=== PATIENT | female | born 1935 | race African-American/Black ===

== ENCOUNTER → 2018-04-14 | Outpatient (CLI) | payer MEDICARE, BC | END | disposition home or self-care (01) | LOC: PVL 10:06 | PROVIDERS: ATTEND Internal Medicine | DX: I73.9 Peripheral vascular disease, unspecified (principal) | CPT/HCPCS: 93923 ==

== ENCOUNTER 2018-04-19 17:40 | Inpatient (IN) | payer MEDICARE, BC ==
[~2018-04-19] VITALS: Ht 157.5 cm; Wt 69.9 kg
[2018-04-19] MEDS ORDERED: PANT40TA4 PO (18:12)
[2018-04-19] MEDS ORDERED: FOLI-43 PO (18:12)
[2018-04-19] MEDS ORDERED: POTA20TA82 PO (18:12)
[2018-04-19] MEDS ORDERED: CELE-84 PO (18:12)
[2018-04-19] MEDS ORDERED: FURO40TA5 PO (18:12)
[2018-04-19] MEDS ORDERED: SIMV20TA6 PO (18:12)
[2018-04-19] MEDS ORDERED: GABA-529 PO (18:12)
[2018-04-19] MEDS ORDERED: ACET650S27 RC (18:12)
[2018-04-19] MEDS ORDERED: CLOP75TA33 PO (18:12)
[2018-04-19] MEDS ORDERED: METF10004 PO (18:12)
[2018-04-20 00:13] LABS: HEMATOCRIT 32.1 % (36.0-48.0); HEMOGLOBIN 10.4 g/dL (12.0-16.0); MEAN CORPUSCULAR HEMOGLOBIN 28.5 pg (28.0-32.0); MEAN CORPUSCULAR VOLUME 88.3 fL (81.0-99.0); PLATELET 517 x1000/uL (130-400); RED BLOOD CELL COUNT 3.64 mill/uL (4.2-5.4)
[2018-04-20 00:17] LABS: CHLORIDE 106 mEq/L (98-107)
[2018-04-20 03:00] VITALS: BP 165/79
[2018-04-20 04:00] VITALS: BP 161/75
[2018-04-20] MEDS ORDERED: DEXTROSE 50% WATER 50ML SYRINGE IV PRN (05:00)
[2018-04-20] MEDS ORDERED: LEVOFLOXACIN 500MG PREMIX 100 ML IV SCH ×2 (06:00)
[2018-04-20] MEDS ORDERED: PANTOPRAZOLE 40MG DR TABLET PO SCH (07:20)
[2018-04-20] MEDS: FUROSEMIDE 40MG/4ML VIAL IVP SCH ×2 (07:27→17:34)
[2018-04-20] MEDS: BLOOD SUGAR DIAGNOSTIC STRIP TEST SCH ×4 (07:27→21:14)
[2018-04-20] MEDS: INSULIN LISPRO 100 UNITS/ML SUBCUT SCH ×4 (07:36→21:33)
[2018-04-20] MEDS ORDERED: METFORMIN HCL 500MG TABLET PO SCH (07:50)
[2018-04-20 08:00] VITALS: BP 159/103
[2018-04-20] MEDS: FOLIC ACID 1MG TABLET PO SCH (08:11)
[2018-04-20] MEDS: CLOPIDOGREL 75MG TABLET PO SCH (08:11)
[2018-04-20] MEDS: POTASSIUM CHLORIDE 20MEQ TABLET SR PO SCH (08:11)
[2018-04-20] MEDS ORDERED: MEDICATION NOT ON FORMULARY EA (Pantoprazole Sodium 40 MG) PO SCH (09:00)
[2018-04-20] MEDS ORDERED: MEDICATION NOT ON FORMULARY EA (Clopidogrel Bisulfate (Clopidogrel) 75 MG) PO SCH (09:00)
[2018-04-20] MEDS ORDERED: MEDICATION NOT ON FORMULARY EA (Folic Acid 1 MG) PO SCH (09:00)
[2018-04-20] MEDS ORDERED: MEDICATION NOT ON FORMULARY EA (Simvastatin 20 MG) PO SCH (09:00)
[2018-04-20] MEDS ORDERED: POTASSIUM CHLORIDE 20MEQ TABLET SR PO SCH (09:00)
[2018-04-20 12:00] VITALS: BP 140/75
[2018-04-20 13:15] LABS: HEMATOCRIT. 32.7 % (36.0-48.0); HEMOGLOBIN. 10.6 g/dL (12.0-16.0); MEAN CORPUSCULAR HEMOGLOBIN 28.9 pg (28.0-32.0); MEAN CORPUSCULAR VOLUME 89.2 fL (81.0-99.0); PLATELET 525 x1000/uL (130-400); RED BLOOD CELL COUNT 3.66 mill/uL (4.2-5.4)
[2018-04-20 13:42] LABS: CHLORIDE 105 mEq/L (98-107)
[2018-04-20 16:00] VITALS: BP 154/53
[2018-04-20] MEDS ORDERED: DIPHENHYDRAMINE 50MG/ML VIAL IV PRN (16:00)
[2018-04-20] MEDS ORDERED: MORPHINE SULFATE 4 MG/ML CPJ (NOT FOR IM USE) IV PRN (16:00)
[2018-04-20] MEDS ORDERED: ONDANSETRON HCL 4MG/2ML INJ IV PRN (16:00)
[2018-04-20 17:25] LABS: PLATELET ESTIMATE INCREASED
[2018-04-20] MEDS ORDERED: IOHEXOL-350 100 ML BOTTLE ONE (17:42)
[2018-04-20 20:00] VITALS: BP 161/85
[2018-04-20] MEDS: ATORVASTATIN CALCIUM 10MG TABLET PO SCH (21:14)
[2018-04-21] VITALS (16 sets, daily range): BP systolic 123–157; BP diastolic 73–93
[2018-04-21] MEDS ORDERED: DEXT 5%/0.45% NACL 1000ML 1,000 ML IV SCH
[2018-04-21] MEDS: BLOOD SUGAR DIAGNOSTIC STRIP TEST SCH ×4 (06:08→21:28)
[2018-04-21] MEDS: LEVOFLOXACIN 250MG PREMIX 50 ML IV SCH (06:08)
[2018-04-21] MEDS: FUROSEMIDE 40MG/4ML VIAL IVP SCH ×2 (06:08→18:49)
[2018-04-21 07:12] LABS: PROTHROMBIN TIME 10.3 sec (9.1-11.1)
[2018-04-21 07:22] LABS: HEMATOCRIT. 34.5 % (36.0-48.0); MEAN CORPUSCULAR HEMOGLOBIN 27.9 pg (28.0-32.0); MEAN CORPUSCULAR VOLUME 87.7 fL (81.0-99.0); PLATELET 545 x1000/uL (130-400); RED BLOOD CELL COUNT 3.93 mill/uL (4.2-5.4); RED CELL DISTRIBUTION WIDTH 17.8 % (11.6-14.6)
[2018-04-21 07:45] LABS: CHLORIDE 104 mEq/L (98-107)
[2018-04-21] MEDS: INSULIN LISPRO 100 UNITS/ML SUBCUT SCH ×4 (07:50→21:39)
[2018-04-21] MEDS ORDERED: FENTANYL CITRATE/PF 50MCG/ML 2ML VIAL ONE (08:13)
[2018-04-21] MEDS ORDERED: MIDAZOLAM HCL 2 MG/2 ML VIAL ONE (08:13)
[2018-04-21] MEDS ORDERED: IODIXANOL 320MG/ML 100 ML BOTTLE IV ONE (08:14)
[2018-04-21] MEDS ORDERED: LIDOCAINE HCL 1% 20ML VIAL (Pyxis) INJ ONE (08:16)
[2018-04-21] MEDS ORDERED: IOHEXOL-300 100 ML BOTTLE ONE (08:43)
[2018-04-21] MEDS: PANTOPRAZOLE SODIUM 40 MG/VIAL IV SCH (09:00)
[2018-04-21] MEDS: POTASSIUM CHLORIDE 20MEQ TABLET SR PO SCH (09:00)
[2018-04-21] MEDS: CLOPIDOGREL 75MG TABLET PO SCH (09:00)
[2018-04-21] MEDS: FOLIC ACID 1MG TABLET PO SCH (09:00)
[2018-04-21] MEDS ORDERED: CLOPIDOGREL 75MG TABLET ONE (09:58)
[2018-04-21 12:40] LABS: PLATELET ESTIMATE INCREASED
[2018-04-21] MEDS ORDERED: HEPARIN SODIUM 1,000 UNIT/1ML VIAL IV ONE (13:47)
[2018-04-21] MEDS ORDERED: POTASSIUM CHLORIDE 20MEQ TABLET SR PO NR (15:15)
[2018-04-21] MEDS: ATORVASTATIN CALCIUM 10MG TABLET PO SCH (21:30)
[2018-04-22] VITALS (8 sets, daily range): BP systolic 101–134; BP diastolic 66–81
[2018-04-22] MEDS: LEVOFLOXACIN 250MG PREMIX 50 ML IV SCH (05:19)
[2018-04-22 06:34] LABS: HEMOGLOBIN 11.1 g/dL (12.0-16.0); MEAN CORPUSCULAR HEMOGLOBIN 28.7 pg (28.0-32.0); MEAN CORPUSCULAR VOLUME 87.6 fL (81.0-99.0); PLATELET 517 x1000/uL (130-400); RED BLOOD CELL COUNT 3.88 mill/uL (4.2-5.4); RED CELL DISTRIBUTION WIDTH 17.6 % (11.6-14.6)
[2018-04-22] MEDS: BLOOD SUGAR DIAGNOSTIC STRIP TEST SCH ×2 (06:39→11:43)
[2018-04-22] MEDS: FUROSEMIDE 40MG/4ML VIAL IVP SCH (06:50)
[2018-04-22] MEDS: INSULIN LISPRO 100 UNITS/ML SUBCUT SCH ×2 (07:55→12:47)
[2018-04-22] MEDS: FOLIC ACID 1MG TABLET PO SCH (08:30)
[2018-04-22] MEDS: PANTOPRAZOLE SODIUM 40 MG/VIAL IV SCH (08:30)
[2018-04-22] MEDS: CLOPIDOGREL 75MG TABLET PO SCH (08:30)
[2018-04-22] MEDS ORDERED: CLOPIDOGREL 75MG TABLET PO SCH (09:00)
[2018-04-22] MEDS ORDERED: POTASSIUM CHLORIDE 20MEQ TABLET SR PO SCH (09:00)
[2018-04-22] MEDS ORDERED: ACETAMINOPHEN 325MG TABLET PO PRN (11:15)
== END 2018-04-22 14:25 | disposition home or self-care (01) | DRG 270 ==
LOC: EDSEX 21:11 → ER 21:11 → 6EST 23:01 → ENRESERV 04-20 01:41 → 3WST 04-21 10:07
PROVIDERS: ADMIT Internal Medicine; ATTEND Internal Medicine
PROC: 04CM3ZZ Extirpation of Matter from Right Popliteal Artery, Percutaneous Approach (ICD-10-PCS; principal; 2018-04-21)
PROC: 04CT3ZZ Extirpation of Matter from Right Peroneal Artery, Percutaneous Approach (ICD-10-PCS; 2018-04-21)
PROC: 047M3ZZ Dilation of Right Popliteal Artery, Percutaneous Approach (ICD-10-PCS; 2018-04-21)
PROC: 047T3ZZ Dilation of Right Peroneal Artery, Percutaneous Approach (ICD-10-PCS; 2018-04-21)
PROC: B41F1ZZ Fluoroscopy of Right Lower Extremity Arteries using Low Osmolar Contrast (ICD-10-PCS; 2018-04-21)
DX: E11.51 Type 2 diabetes mellitus with diabetic peripheral angiopathy without gangrene (principal); I50.43 Acute on chronic combined systolic (congestive) and diastolic (congestive) heart failure; I69.351 Hemiplegia and hemiparesis following cerebral infarction affecting right dominant side; N39.0 Urinary tract infection, site not specified; I11.0 Hypertensive heart disease with heart failure; E78.1 Pure hyperglyceridemia; D64.9 Anemia, unspecified; I70.201 Unspecified atherosclerosis of native arteries of extremities, right leg; E11.65 Type 2 diabetes mellitus with hyperglycemia; Z90.710 Acquired absence of both cervix and uterus; Z90.81 Acquired absence of spleen; Z88.0 Allergy status to penicillin; Z88.8 Allergy status to other drugs, medicaments and biological substances; Z79.02 Long term (current) use of antithrombotics/antiplatelets; Z79.84 Long term (current) use of oral hypoglycemic drugs; Z79.899 Other long term (current) drug therapy
CPT/HCPCS: 36415; 37225; 37229; 75635; 75710; 80048; 80053; 80061; 82962; 83036; 83880; 84145; 84443; 85007; 85027; 85347; 85610; 86850; 86900; 87040; 87077; 87086; 87186; 93306; 93922; 93971; 99285; C1725; C1760; C1769; C1885; C1887; C1893; C1894; C9113; J1644; J1815; J1940; J1956; J2250; J3010; J3490; J7050; Q9967

== ENCOUNTER 2018-05-02 12:44 | Emergency (ER) | payer MEDICARE, BC ==
[~2018-05-02] VITALS: Ht 157.5 cm; Wt 70.0 kg
[~2018-05-02 12:44] MED LIST: ACET650S27 RC; CELE-84 PO; CLOP75TA33 PO; FOLI-43 PO; FURO40TA5 PO; GABA-529 PO; METF-416 PO; PANT40TA4 PO; POTA20TA82 PO; SIMV20TA6 PO
[2018-05-02] MEDS ORDERED: SODIUM CHLORIDE 0.9% 1,000 ML IV ONE (13:18)
[2018-05-02 14:07] LABS: EOSINOPHILS % 2.1 % (0.0-5.0); HEMATOCRIT. 35.4 % (36.0-48.0); HEMOGLOBIN. 11.3 g/dL (12.0-16.0); LYMPHOCYTES % 41.2 % (20.0-50.0); MEAN CORPUSCULAR HEMOGLOBIN 28.4 pg (28.0-32.0); MEAN CORPUSCULAR VOLUME 89.4 fL (81.0-99.0); MEAN PLATELET VOLUME 10.1 fl (7.4-10.4); MONOCYTES % 9.8 % (2.0-8.0); NEUTROPHILS % 45.9 % (40.0-76.0); PLATELET 537 x1000/uL (130-400); RED BLOOD CELL COUNT 3.96 mill/uL (4.2-5.4)
[2018-05-02 14:13] LABS: PARTIAL THROMBOPLASTIN TIME 28.8 sec (23.4-31.0); PROTHROMBIN TIME 10.4 sec (9.1-11.1)
[2018-05-02 14:27] LABS: HCG SCREEN NEGATIVE
[2018-05-02 16:44] LABS: CHLORIDE 110 mEq/L (98-107)
[2018-05-02 18:11] VITALS: BP 143/72
== END 2018-05-02 18:23 | disposition home or self-care (01) ==
LOC: ER 12:44 → CANBEDREQ 18:47
DX: S00.03XA Contusion of scalp, initial encounter (principal); I10 Essential (primary) hypertension; E11.9 Type 2 diabetes mellitus without complications; M47.892 Other spondylosis, cervical region; E88.09 Other disorders of plasma-protein metabolism, not elsewhere classified; D47.3 Essential (hemorrhagic) thrombocythemia; D72.829 Elevated white blood cell count, unspecified; D64.9 Anemia, unspecified; Z88.0 Allergy status to penicillin; Z90.710 Acquired absence of both cervix and uterus; Z86.73 Personal history of transient ischemic attack (TIA), and cerebral infarction without residual deficits; W01.0XXA Fall on same level from slipping, tripping and stumbling without subsequent striking against object, initial encounter; Y93.89 Activity, other specified; Y92.89 Other specified places as the place of occurrence of the external cause
CPT/HCPCS: 36415; 70450; 71045; 72125; 72170; 80053; 83690; 84703; 85025; 85610; 85730; 86850; 86900; 86901; 99285; J7030